=== PATIENT | male | born 1965 | race Caucasian/White ===

== ENCOUNTER → 2017-06-25 | Outpatient (CLI) | payer OTHER ==
--- NOTE | 2017-06-25 09:42 | DIAGNOSTIC IMAGING REPORT ---
ABDOMINAL ULTRASOUND, RIGHT UPPER QUADRANT HISTORY: EPIGASTRIC PAIN. COMPARISON: None. FINDINGS: Pancreas: The pancreatic tail is obscured by overlying bowel gas. The remaining portions of the pancreas are within normal limits. Liver: Unremarkable. Gallbladder: Multiple small gallstones. No gallbladder wall thickening. The technologist reported a negative sonographic Lopez's sign. CBD: 5 mm. Right kidney: No hydronephrosis. IMPRESSION: Cholelithiasis. No gallbladder wall thickening. Electronically signed by: Andrea Nunez M.D. 06/25/2017 9:41 AM Dictated Date/Time: 06/25/2017 9:39 AM
== END | disposition home or self-care (01) ==
LOC: C.ULTR 09:01
PROVIDERS: ATTEND Family Medicine
DX: K29.00 Acute gastritis without bleeding (principal); R10.13 Epigastric pain; K80.20 Calculus of gallbladder without cholecystitis without obstruction

== ENCOUNTER → 2017-06-28 | Outpatient (CLI) | payer OTHER ==
[2017-06-27 10:06] VITALS: BMI 28.0
[~2017-06-28] VITALS: Ht 182.9 cm; Wt 95.5 kg
[~2017-06-28] MED LIST: HYDR-5688 PO
[2017-07-01 11:42] VITALS: BP 152/83; PULSE 69; TEMP 36.7
[2017-07-01 12:00] VITALS: Ht 182.9 cm; Wt 95.5 kg
[2017-07-01 12:04] VITALS: BP 152/83; PULSE 69; TEMP 36.7; O2SAT 99; BMI 28.5
[2017-07-01 12:37] VITALS: O2SAT 98; BMI 28.5
[2017-07-01 12:52] VITALS: O2SAT 98
== END | disposition home or self-care (01) ==
LOC: C.CPL 08:00 → EDSTATUS 07-04 14:01
PROVIDERS: ATTEND Surgery
DX: Z01.818 Encounter for other preprocedural examination (principal)

== ENCOUNTER 2017-07-01 10:07 | Inpatient (IN) | payer OTHER ==
[~2017-07-01] VITALS: Ht 182.9 cm; Wt 95.5 kg
[2017-07-01] MEDS ORDERED: HYDROCODONE/ACETAMIN 5/325MG TAB PO PRN ×2 (11:30)
[2017-07-01] MEDS ORDERED: MoRPHine SULFATE 4 MG/ML 1 ML CARP\\VIAL IV PRN ×3 (11:30)
[2017-07-01] MEDS ORDERED: ONDANSETRON INJ 2 MG/ML 2 ML VIAL IV PRN (11:30)
[2017-07-01 11:42] VITALS: BP 152/83; PULSE 69; TEMP 36.7; O2SAT 99
[2017-07-01 12:00] VITALS: O2SAT 98; Ht 182.9 cm; Wt 95.5 kg
--- NOTE | 2017-07-01 12:04 | History and Physical ---
History & Physical Date & Time of Service: July 01, 2017 at 11:50 Chief Complaint: Cholecystitis Primary Care Physician: Laney Franz M.D. History of Present Illness Source: patient, family Mr. Lizama is a 51-year-old male who was scheduled for Laparoscopic Cholecystectomy with 07/04/[address] Sanchez. Patient called [facility] this AM stating that he had severe right upper quadrant pain with associated nausea. Patient states that pain began yesterday evening after dinner (turkey hoagie). He states that the pain continued through the evening into this morning. Patient was instructed to report to [facility] as a direct admit to our service. Past Medical/Surgical History Medical Problems: (1) Cholecystitis Social History Smoking Status: Never Smoker Allergies Coded Allergies: No Known Allergies (Unverified , 06/27/17) Home Medications No Active Prescriptions or Reported Meds Review of Systems Constitutional: No fever, No chills Abdomen: + pain, + nausea, No vomiting, No diarrhea, No constipation Physical Exam Vital Signs Date Time Temp Pulse Resp B/P (MAP) Pulse Ox O2 Delivery O2 Flow Rate FiO2 07/01/17 11:42 36.7 69 18 152/83 (106) 99 Room Air General Appearance: WD/WN, no apparent distress Head: normocephalic, atraumatic Abdomen/GI: soft, + tenderness (right upper quadrant pain with palpation. ) Skin: normal color, warm/dry, no rash Diagnostics Laboratory Results Results Past 24 Hours Test 07/01/17 11:32 07/01/17 11:37 Range/Units Impression Assessment and Plan 51-year-old male with Cholelithiasis, scheduled for Laparoscopic Cholecystectomy with Dr. Sanchez on . Will admit patient for pain control, nausea control. Plan on Laparoscopic Cholecystectomy, Possible Open with Dr. Sanchez in OR tomorrow. Clear liquid diet for today, NPO after midnight. SCDs thigh IV antibiotics IV pain medications. IV Zofran. Please call with any questions or concerns. Resuscitation Status VTE Prophylaxis Will order VTE Prophylaxis: Yes
[2017-07-01] MEDS: SODIUM CHLORIDE 0.9% 1000ML 1,000 ML IV SCH ×2 (12:25→22:13)
[2017-07-01 12:53] LABS: ALBUMIN 3.8 gm/dl (3.4-5.0); BASO % 0.1 %; BASO ABS # 0.01 K/uL (0-0.2); EOS % 0.2 %; EOS ABS # 0.03 K/uL (0-0.5); HEMATOCRIT 43.6 % (42-52); HEMOGLOBIN 15.4 g/dL (14.0-18.0); IG# 0.02 K/uL (0.00-0.02); LYMPH % 10.1 %; LYMPH ABS # 1.31 K/uL (1.2-3.4); MEAN CELL VOLUME 88.4 fL (80-100); MEAN CORPUSCULAR HEMOGLOBIN 31.2 pg (25-34); MEAN CORPUSCULAR HGB CONC 35.3 g/dl (32-36); MEAN PLATELET VOLUME 9.6 fL (7.4-10.4); MONO % 5.9 %; MONO ABS # 0.77 K/uL (0.11-0.59); NEUT % 83.5 %; NEUT ABS # 10.86 K/uL (1.4-6.5); PLATELET COUNT 251 K/uL (130-400); RED CELL DISTRIBUTION WIDTH CV 12.7 % (11.5-14.5); RED CELL DISTRIBUTION WIDTH SD 41.2 fL (36.4-46.3); TOTAL PROTEIN 7.4 gm/dl (6.4-8.2)
[2017-07-01 12:57] LABS: CREATININE 0.96 mg/dl (0.60-1.40)
[2017-07-01] MEDS: ACETAMINOPHEN IV 1,000 MG in EMPTY BAG 0 ML IV SCH ×2 (13:34→22:13)
--- NOTE | 2017-07-01 13:53 | Anesthesiology Progress Note ---
Anesthesia Progress Note Date of Service July 01, 2017. Progress Notes The patient is scheduled for a laparoscopic cholecystectomy tomorrow. He has cholelithiasis with elevated LFTs but no other medical problems. He was consented for general anesthesia. He was counseled to remain NPO after midnight except for sips of water with pills.
[2017-07-01] MEDS: CEFOXITIN IV 2,000 MG in DEXTROSE 5% 50ML 50 ML IV SCH ×2 (13:57→20:41)
[2017-07-01 15:01] VITALS: BP 130/76; PULSE 79; TEMP 36.5; O2SAT 99
[2017-07-01 23:01] VITALS: BP 127/69; PULSE 88; TEMP 37; O2SAT 97
[2017-07-02] VITALS (10 sets, daily range): BP systolic 114–149; BP diastolic 66–82; PULSE 78–105; TEMP 36.5–37.4; O2SAT 95–98
[2017-07-02] MEDS: CEFOXITIN IV 2,000 MG in DEXTROSE 5% 50ML 50 ML IV SCH ×4 (01:23→20:47)
[2017-07-02] MEDS: ACETAMINOPHEN IV 1,000 MG in EMPTY BAG 0 ML IV SCH ×3 (05:43→21:54)
[2017-07-02 06:45] LABS: BASO % 0.2 %; BASO ABS # 0.02 K/uL (0-0.2); EOS % 0.9 %; HEMATOCRIT 41.6 % (42-52); HEMOGLOBIN 14.1 g/dL (14.0-18.0); IG# 0.01 K/uL (0.00-0.02); LYMPH ABS # 1.05 K/uL (1.2-3.4); MEAN CELL VOLUME 89.3 fL (80-100); MEAN CORPUSCULAR HEMOGLOBIN 30.3 pg (25-34); MEAN CORPUSCULAR HGB CONC 33.9 g/dl (32-36); MEAN PLATELET VOLUME 9.5 fL (7.4-10.4); MONO % 10.8 %; MONO ABS # 1.14 K/uL (0.11-0.59); NEUT ABS # 8.22 K/uL (1.4-6.5); PLATELET COUNT 221 K/uL (130-400); RED CELL DISTRIBUTION WIDTH SD 41.9 fL (36.4-46.3); WHITE BLOOD COUNT 10.54 K/uL (4.8-10.8)
--- NOTE | 2017-07-02 07:02 | Surgery Progress Note ---
Surgery Progress Note Date of Service July 02, 2017. Subjective Post OP Day: + feeling well, + ambulating, + flatus, + pain controlled, + diet (NPO after midnight), No complaints, No bowel movement, No nausea, No vomiting Objective Vital Signs: Date Time Temp Pulse Resp B/P (MAP) Pulse Ox O2 Delivery O2 Flow Rate FiO2 07/01/17 23:15 Room Air 07/01/17 23:01 37.0 88 16 127/69 (88) 97 Room Air 07/01/17 15:30 Room Air 07/01/17 15:01 36.5 79 16 130/76 (94) 99 Room Air 07/01/17 12:00 98 Room Air 07/01/17 11:42 36.7 69 18 152/83 (106) 99 Room Air General Appearance: WD/WN, no apparent distress Head: normocephalic, atraumatic Respiratory/Chest: no respiratory distress, no accessory muscle use Abdomen: non distended, soft, no organomegaly, + tenderness (right sided) Laboratory Results: Results Past 24 Hours Test 07/01/17 12:02 07/02/17 06:21 Range/Units White Blood Count 13.00 10.54 4.8-10.8 K/uL Red Blood Count 4.93 4.66 4.7-6.1 M/uL Hemoglobin 15.4 14.1 14.0-18.0 g/dL Hematocrit 43.6 41.6 42-52 % Mean Corpuscular Volume 88.4 89.3 80-100 fL Mean Corpuscular Hemoglobin 31.2 30.3 25-34 pg Mean Corpuscular Hemoglobin Concent 35.3 33.9 32-36 g/dl Platelet Count 251 221 130-400 K/uL Mean Platelet Volume 9.6 9.5 7.4-10.4 fL Neutrophils (%) (Auto) 83.5 78.0 % Lymphocytes (%) (Auto) 10.1 10.0 % Monocytes (%) (Auto) 5.9 10.8 % Eosinophils (%) (Auto) 0.2 0.9 % Basophils (%) (Auto) 0.1 0.2 % Neutrophils # (Auto) 10.86 8.22 1.4-6.5 K/uL Lymphocytes # (Auto) 1.31 1.05 1.2-3.4 K/uL Monocytes # (Auto) 0.77 1.14 0.11-0.59 K/uL Eosinophils # (Auto) 0.03 0.10 0-0.5 K/uL Basophils # (Auto) 0.01 0.02 0-0.2 K/uL RDW Standard Deviation 41.2 41.9 36.4-46.3 fL RDW Coefficient of Variation 12.7 13.0 11.5-14.5 % Immature Granulocyte % (Auto) 0.2 0.1 % Immature Granulocyte # (Auto) 0.02 0.01 0.00-0.02 K/uL Creatinine 0.96 0.60-1.40 mg/dl Estimated GFR () 104.9 Estimated GFR (Non- 90.5 Total Bilirubin 0.9 0.2-1 mg/dl Direct Bilirubin 0.2 0-0.2 mg/dl Aspartate Amino Transf (AST/SGOT) 95 15-37 U/L Alanine Aminotransferase (ALT/SGPT) 173 12-78 U/L Alkaline Phosphatase 160 45-117 U/L Total Protein 7.4 6.4-8.2 gm/dl Albumin 3.8 3.4-5.0 gm/dl Hepatitis C Antibody Screen NEG NEG Assessment & Plan Cholelithiasis Patient reports no changes from yesterday. Still having right sided, RUQ tenderness. No N/V at this time. Lap salvatore today with Dr. Sanchez. Risks, benefits reviewed - questions answered. Continue current management. Please contact with questions or concerns.
[2017-07-02 07:08] LABS: ALBUMIN 3.3 gm/dl (3.4-5.0); TOTAL PROTEIN 6.4 gm/dl (6.4-8.2)
[2017-07-02] MEDS: SODIUM CHLORIDE 0.9% 1000ML 1,000 ML IV SCH ×2 (07:33→21:55)
[2017-07-02] MEDS ORDERED: PROPOFOL IV EMULSION 10 MG/ML 20 ML VIAL ONE (15:50)
[2017-07-02] MEDS ORDERED: NEOSTIGMINE METHYLSULFATE 5 MG/5 ML SYR ONE (15:50)
[2017-07-02] MEDS ORDERED: LIDOCAINE HCL 2% 2 ML VIAL (20MG/ML) ONE (15:50)
[2017-07-02] MEDS ORDERED: ONDANSETRON INJ 2 MG/ML 2 ML VIAL ONE (15:50)
[2017-07-02] MEDS ORDERED: GLYCOPYRROLATE INJ 0.2 MG/ML VIAL ONE (15:50)
[2017-07-02] MEDS ORDERED: DEXAMETHASONE SOD INJ 4 MG/ML VIAL ONE (15:50)
[2017-07-02] MEDS ORDERED: KETOROLAC TROMETHAMINE 30 MG/ML VIAL ONE ×2 (15:51→18:29)
[2017-07-02] MEDS ORDERED: LARYING-O-JET KIT (LTA) ONE (15:51)
[2017-07-02] MEDS ORDERED: FENTANYL CITRATE INJ 50 MCG/1 ML 2 ML VIAL ONE ×2 (15:51→19:14)
[2017-07-02] MEDS ORDERED: ROCURONIUM BROMIDE 10 MG/ML 5 ML VIAL ONE (15:51)
[2017-07-02] MEDS ORDERED: MIDAZOLAM HCL 1 MG/ML 2ML VIAL ONE (15:51)
[2017-07-02] MEDS ORDERED: BUPIVACAINE 0.5 % 5 MG/1 ML MPF 30ML VIAL ONE (17:12)
[2017-07-02] MEDS ORDERED: EpINEphrine INJ 1MG/ML AMP 1 MG/ML AMP ONE (17:12)
[2017-07-02] MEDS ORDERED: NURSING VERBAL MED ORDER ONE (17:19)
--- NOTE | 2017-07-02 17:23 | History & Physical Bridge Note ---
H&P Re-Evaluation Bridge Note: I have examined the patient, reviewed the History & Physical and in the interval since the performance of the History & Physical I have noted the following changes of clinical significance: No changes noted
[2017-07-02] MEDS ORDERED: CEFOXITIN SOD 1 GM VIAL ONE (18:01)
[2017-07-02] MEDS ORDERED: LABETALOL HCL IV 5 MG/ML 20ML ONE (18:10)
--- NOTE | 2017-07-02 18:37 | [facility] Post Operative Brief Note ---
Immediate Operative Summary Operative Date July 02, 2017. Pre-Operative Diagnosis symptomatic Cholelithiasis Post-Operative Diagnosis symptomatic Cholelithiasis Procedure(s) Performed Laparoscopic Cholecystectomy Surgeon Dr. Sanchez Straightening Roll Operator Surgeon(s) Joann COELHO Estimated Blood Loss 10ml Findings Consistent with Post-Op Diagnosis Specimens a. gallbladder and contents Anesthesia Type General Complication(s) none
--- NOTE | 2017-07-02 18:43 | [facility] Operative Report ---
Operative Report Operative Date July 02, 2017. Pre-Operative Diagnosis symptomatic Cholelithiasis Post-Operative Diagnosis symptomatic Cholelithiasis Procedure(s) Performed Laparoscopic Cholecystectomy Surgeon Dr. Sanchez Puttier Surgeon(s) Joann COELHO Estimated Blood Loss 10ml Specimens a. gallbladder and contents Anesthesia Type General Complication(s) none Description of Procedure After informed consent was obtained the patient was taken to the operating room and placed in the supine position. After successful intubation the abdomen was sterilely prepped and draped in usual fashion. A periumbilical incision was made with an 11 blade scalpel and carried down through the soft tissue using electrocautery. The anterior rectus fascia was opened using electrocautery and 2 #0 Vicryl stay sutures were placed. The peritoneum was elevated with hemostats and incised under direct vision using Metzenbaum scissors. A finger sweep was performed and a 12 mm Jules trocar was placed. The abdomen was insufflated to 18 mmHg. The laparoscope was inserted and the abdomen was examined in 360. No gross abnormalities were identified. A subxiphoid 5 mm port and 2 right upper quadrant 5 mm ports were placed under direct vision. The patient was placed in a reverse Trendelenburg position and slightly airplaned to the left. The gallbladder was grasped and elevated superiorly and laterally. A [place] dissector was used to take down adhesions around the neck of the gallbladder. The cystic duct was identified and skeletonized. It was clipped twice proximally and once distally and transected using a laparoscopic scissor. In similar fashion the cystic artery was identified and skeletonized clipped and divided. There was also a posterior branch that had to be clipped and divided as well of the cystic artery. The gallbladder was removed from the gallbladder fossa with electrocautery. There was an incidental small hole made in it during this process. We immediately suctioned up the bile and thoroughly irrigated the right upper quadrant following gallbladder removal. It was placed into an Endo Catch bag. Thorough irrigation was performed again. At the end of the procedure there was adequate hemostasis and no evidence of any bile leaks. A final look around the abdomen showed no other abnormalities. The gallbladder and trochars were all removed and the abdomen was desufflated. The fascia of the camera port was closed using 0 Vicryl in a [id number] fashion. All the wounds were irrigated and closed using 4-0 Monocryl. Marcaine was injected around them for postoperative analgesia and skin glue used as a dressing. The patient was awaken extubated and transferred to recovery in stable condition. My physician's practice assistant was present throughout the entire case. She helped with prepping the patient, and with exposure for trocar placement. She retracted the gallbladder throughout the case. She also assisted with wound closure and dressing placement. I attest to the content of the Intraoperative Record and any orders documented therein. Any exceptions are noted below.
[2017-07-02] MEDS ORDERED: ONDANSETRON INJ 2 MG/ML 2 ML VIAL IV PRN (19:15)
[2017-07-02] MEDS ORDERED: HYDROmorphone INJ 0.5 MG/0.5 ML SYR IV PRN (19:15)
[2017-07-02] MEDS ORDERED: EpHEDrine SULFATE INJ 50 MG/ML AMP IV PRN (19:15)
[2017-07-02] MEDS ORDERED: PROMETHAZINE HCL INJ 12.5 MG in SODIUM CHLORIDE 0.9% 50ML 50 ML IV PRN (19:15)
[2017-07-02] MEDS ORDERED: ATROPINE SULFATE 0.1 MG/ML 5ML SYR IV PRN (19:15)
[2017-07-02] MEDS ORDERED: PHENYLEPHRINE 100MCG/ML 5ML SYR IV PRN (19:15)
[2017-07-02] MEDS: FENTANYL CITRATE INJ 50 MCG/1 ML 2 ML VIAL IV PRN ×2 (19:18→19:24)
--- NOTE | 2017-07-02 19:31 | Anesthesiology Progress Note ---
Anesthesia Post Op Note Date & Time July 02, 2017 at 19:30 Vital Signs Pain Intensity: 4 Vital Signs Past 12 Hours Date Time Temp Pulse Resp B/P (MAP) Pulse Ox O2 Delivery O2 Flow Rate FiO2 07/02/17 19:25 68 18 150/87 98 Room Air 07/02/17 19:15 59 18 140/99 96 Room Air 07/02/17 19:05 63 18 153/84 100 Oxymask 10 07/02/17 18:55 52 18 160/87 100 Oxymask 10 07/02/17 18:48 36.1 70 16 156/92 100 Oxymask 10 07/02/17 14:51 37.0 86 16 130/76 (94) 97 Room Air 86 07/02/17 11:44 36.8 90 14 132/70 (90) 98 Room Air 07/02/17 09:25 95 Room Air 07/02/17 07:49 37.4 89 16 138/72 (94) 95 Room Air Notes Mental Status: alert / awake / arousable, participated in evaluation Pt Amnestic to Procedure: Yes Nausea / Vomiting: adequately controlled Pain: adequately controlled Airway Patency, RR, SpO2: stable & adequate BP & HR: stable & adequate Hydration State: stable & adequate Anesthetic Complications: no major complications apparent
[2017-07-03] MEDS: CEFOXITIN IV 2,000 MG in DEXTROSE 5% 50ML 50 ML IV SCH ×2 (01:38→07:45)
[2017-07-03 03:05] VITALS: BP 113/68; PULSE 102; TEMP 36.6; O2SAT 96
[2017-07-03] MEDS: SODIUM CHLORIDE 0.9% 1000ML 1,000 ML IV SCH (03:28)
[2017-07-03] MEDS: ACETAMINOPHEN IV 1,000 MG in EMPTY BAG 0 ML IV SCH (05:35)
[2017-07-03 06:30] LABS: HEMATOCRIT 39.9 % (42-52); HEMOGLOBIN 13.6 g/dL (14.0-18.0); IG# 0.02 K/uL (0.00-0.02); LYMPH % 6.9 %; LYMPH ABS # 0.73 K/uL (1.2-3.4); MEAN CELL VOLUME 89.5 fL (80-100); MEAN CORPUSCULAR HEMOGLOBIN 30.5 pg (25-34); MEAN CORPUSCULAR HGB CONC 34.1 g/dl (32-36); MEAN PLATELET VOLUME 9.3 fL (7.4-10.4); MONO % 5.1 %; MONO ABS # 0.54 K/uL (0.11-0.59); NEUT % 87.8 %; NEUT ABS # 9.27 K/uL (1.4-6.5); PLATELET COUNT 227 K/uL (130-400); RED CELL DISTRIBUTION WIDTH CV 12.7 % (11.5-14.5); RED CELL DISTRIBUTION WIDTH SD 41.6 fL (36.4-46.3); WHITE BLOOD COUNT 10.56 K/uL (4.8-10.8)
[2017-07-03 07:04] LABS: ALBUMIN 2.9 gm/dl (3.4-5.0); TOTAL PROTEIN 6.5 gm/dl (6.4-8.2)
--- NOTE | 2017-07-03 07:57 | Anesthesiology Progress Note ---
Anesthesia Post Op Note Date & Time July 03, 2017 at 07:57 Vital Signs Vital Signs Past 12 Hours Date Time Temp Pulse Resp B/P (MAP) Pulse Ox O2 Delivery O2 Flow Rate FiO2 07/03/17 03:05 36.6 102 16 113/68 (83) 96 Room Air 07/02/17 23:30 Room Air 07/02/17 22:53 36.6 104 18 114/66 (82) 95 Room Air 07/02/17 22:45 36.9 105 18 134/72 (92) 96 Room Air 07/02/17 21:51 36.6 103 16 119/73 (88) 97 Room Air 07/02/17 20:42 36.6 87 18 139/81 (100) 96 Room Air 07/02/17 20:17 36.5 87 18 149/82 (104) 96 Room Air Notes Mental Status: alert / awake / arousable, participated in evaluation Pt Amnestic to Procedure: Yes Nausea / Vomiting: adequately controlled Pain: adequately controlled Airway Patency, RR, SpO2: stable & adequate BP & HR: stable & adequate Hydration State: stable & adequate Anesthetic Complications: no major complications apparent
[2017-07-03 07:59] VITALS: BP 136/72; PULSE 92; TEMP 36.5; O2SAT 96
--- NOTE | 2017-07-03 08:14 | Surgery Progress Note ---
Surgery Progress Note Date of Service July 03, 2017. Subjective Post OP Day: 1 + feeling well no complaints. pain controlled Objective Vital Signs: Date Time Temp Pulse Resp B/P (MAP) Pulse Ox O2 Delivery O2 Flow Rate FiO2 07/03/17 07:59 36.5 92 14 136/72 (93) 96 Room Air 07/03/17 03:05 36.6 102 16 113/68 (83) 96 Room Air 07/02/17 23:30 Room Air 07/02/17 22:53 36.6 104 18 114/66 (82) 95 Room Air 07/02/17 22:45 36.9 105 18 134/72 (92) 96 Room Air 07/02/17 21:51 36.6 103 16 119/73 (88) 97 Room Air 07/02/17 20:42 36.6 87 18 139/81 (100) 96 Room Air 07/02/17 20:17 36.5 87 18 149/82 (104) 96 Room Air 07/02/17 19:50 Room Air 07/02/17 19:25 68 18 150/87 98 Room Air 07/02/17 19:15 59 18 140/99 96 Room Air 07/02/17 19:05 63 18 153/84 100 Oxymask 10 07/02/17 18:55 52 18 160/87 100 Oxymask 10 07/02/17 18:48 36.1 70 16 156/92 100 Oxymask 10 07/02/17 17:50 36.5 78 16 144/81 (102) 95 Room Air 07/02/17 15:30 Room Air 07/02/17 14:51 37.0 86 16 130/76 (94) 97 Room Air 86 07/02/17 11:44 36.8 90 14 132/70 (90) 98 Room Air 07/02/17 09:25 95 Room Air General Appearance: no apparent distress Respiratory/Chest: no respiratory distress, no accessory muscle use Abdomen: non tender, non distended, soft Incision(s): clean, dry, intact Laboratory Results: Results Past 24 Hours Test 07/03/17 06:04 Range/Units White Blood Count 10.56 4.8-10.8 K/uL Red Blood Count 4.46 4.7-6.1 M/uL Hemoglobin 13.6 14.0-18.0 g/dL Hematocrit 39.9 42-52 % Mean Corpuscular Volume 89.5 80-100 fL Mean Corpuscular Hemoglobin 30.5 25-34 pg Mean Corpuscular Hemoglobin Concent 34.1 32-36 g/dl Platelet Count 227 130-400 K/uL Mean Platelet Volume 9.3 7.4-10.4 fL Neutrophils (%) (Auto) 87.8 % Lymphocytes (%) (Auto) 6.9 % Monocytes (%) (Auto) 5.1 % Eosinophils (%) (Auto) 0.0 % Basophils (%) (Auto) 0.0 % Neutrophils # (Auto) 9.27 1.4-6.5 K/uL Lymphocytes # (Auto) 0.73 1.2-3.4 K/uL Monocytes # (Auto) 0.54 0.11-0.59 K/uL Eosinophils # (Auto) 0.00 0-0.5 K/uL Basophils # (Auto) 0.00 0-0.2 K/uL RDW Standard Deviation 41.6 36.4-46.3 fL RDW Coefficient of Variation 12.7 11.5-14.5 % Immature Granulocyte % (Auto) 0.2 % Immature Granulocyte # (Auto) 0.02 0.00-0.02 K/uL Total Bilirubin 0.6 0.2-1 mg/dl Direct Bilirubin 0.2 0-0.2 mg/dl Aspartate Amino Transf (AST/SGOT) 52 15-37 U/L Alanine Aminotransferase (ALT/SGPT) 97 12-78 U/L Alkaline Phosphatase 109 45-117 U/L Total Protein 6.5 6.4-8.2 gm/dl Albumin 2.9 3.4-5.0 gm/dl Assessment & Plan POD 1 doing well ok for d/c after breakfast instructions given
[2017-07-03 08:22] VITALS: O2SAT 96
[2017-07-03] MEDS ORDERED: HYDR-5688 PO (08:45)
--- NOTE | 2017-07-03 08:47 | Discharge Instructions ---
Discharge Instructions Date of Service July 03, 2017. Admission Reason for Admission: Cholecystitis Discharge Discharge Diagnosis / Problem: laparoscopic cholecystectomy Discharge Goals Goal(s): Decrease discomfort Activity Recommendations Activity Limitations: as noted below Lifting Limitations: no more than 10 pounds Shower/Bathe: no limitations Driving or Machine Use: resume 3 days after discharge . Instructions / Follow-Up Instructions / Follow-Up Dr. Sanchez in approx 2 weeks, call the office [phone] to schedule Current Hospital Diet Patient's current hospital diet: Regular Diet Discharge Diet Recommended Diet: Low Fat Diet (for a few days) Procedures Procedures Performed: Laparoscopic Cholecystectomy Pending Studies Studies pending at discharge: yes List of pending studies: pathology Medical Emergencies . Who to Call and When: Medical Emergencies: If at any time you feel your situation is an emergency, please call 911 immediately. . Non-Emergent Contact Non-Emergency issues call your: Surgeon Call Non-Emergent contact if: you have a fever, temperature is above 101.5, your pain is not controlled, wound has increased pain, you have any medication questions . "Provider Documentation" section prepared by Medardo Pickett. .
[2017-07-03 11:00] VITALS: BP 132/74; PULSE 80; TEMP 36.6; O2SAT 98
== END 2017-07-03 11:21 | disposition home or self-care (01) | DRG 419 ==
LOC: C.MSW 11:27 → OBSVTOIN 11:31
PROVIDERS: ADMIT Surgery; ATTEND Surgery
PROC: 0FT44ZZ Resection of Gallbladder, Percutaneous Endoscopic Approach (ICD-10-PCS; principal; 2017-07-02 07:30)
DX: K80.20 Calculus of gallbladder without cholecystitis without obstruction (principal)